=== PATIENT | male | born 1980 | race Caucasian/White ===

== ENCOUNTER 2019-10-04 16:05 | Emergency (ER) | payer OTHER ==
[2019-10-04] MEDS ORDERED: MORPHINE 4 MG/ML SYR ONE (17:20)
--- NOTE | 2019-10-04 18:21 | RAD REPORT ---
EXAM DESCRIPTION: Ribs Right - 10/04/2019 5:41 pm CLINICAL HISTORY: Right rib pain FINDINGS: No fracture is seen
--- NOTE | 2019-10-04 18:24 | RAD REPORT ---
EXAM DESCRIPTION: Jane Dunaway (2 Views)10/04/2019 5:39 pm CLINICAL HISTORY: Chest pain COMPARISON: None FINDINGS: The lungs appear clear of acute infiltrate. The heart is normal size IMPRESSION: No acute abnormalities displayed
--- NOTE | 2019-10-04 19:12 | EDPHYS ---
Physician Documentation [facility] Name: Katlyn Chisholm Age: 39 yrs Sex: Male : 1980 Arrival Date: 10/04/2019 Time: 16:08 Bed 26 Private MD: ED Physician Maicol Ballard HPI: 10/03 17:02 This 39 yrs old Male presents to ER via Ambulatory with complaints of Rib mh7 Injury. 17:04 The patient or guardian reports chest pain that is located primarily in the right mh7 lateral anterior chest and right lateral posterior chest. Onset: The symptoms/episode began/occurred 3 day(s) ago. The pain does not radiate. Associated signs and symptoms: Pertinent negatives: abdominal pain, cough, diaphoresis, dizziness, headache, lower extremity pain, lower extremity swelling, lightheadedness, nausea, near syncope, palpitations, recent travel, shortness of breath, syncope, vomiting. The chest pain is described as sharp. Duration: The patient or guardian reports a single episode, that is still ongoing, and unchanged. Modifying factors: The symptoms are alleviated by remaining still, the symptoms are aggravated by movement. Severity of pain: At its worst the pain was moderate last night, in the emergency department the pain is unchanged. Patient states that that he tripped and fell 3 days ago but caught himself by putting both hands onto the ground but felt immediate pain to right chest and rib area. Denies any other injuries, fever, nausea, vomiting.. Historical: - Allergies: 16:15 Nortriptyline; ph - Immunization history:: Adult Immunizations unknown. - Social history:: Smoking status: Patient reports the use of cigarette tobacco products, smokes one pack cigarettes per day. ROS: 17:04 Constitutional: Negative for fever, chills, and weight loss, Eyes: Negative for injury, mh7 pain, redness, and discharge, ENT: Negative for injury, pain, and discharge, Neck: Negative for injury, pain, and swelling, Abdomen/GI: Negative for abdominal pain, nausea, vomiting, diarrhea, and constipation, Back: Negative for injury and pain, : Negative for injury, bleeding, discharge, and swelling, Skin: Negative for injury, rash, and discoloration, Neuro: Negative for headache, weakness, numbness, tingling, and seizure, Psych: Negative for depression, anxiety, suicide ideation, homicidal ideation, and hallucinations, Allergy/Immunology: Negative for hives, rash, and allergies, Endocrine: Negative for neck swelling, polydipsia, polyuria, polyphagia, and marked weight changes, Hematologic/Lymphatic: Negative for swollen nodes, abnormal bleeding, and unusual bruising. Exam: 17:04 Constitutional: This is a well developed, well nourished patient who is awake, alert, mh7 and in no acute distress. Head/Face: Normocephalic, atraumatic. Eyes: Pupils equal round and reactive to light, extra-ocular motions intact. Lids and lashes normal. Conjunctiva and sclera are non-icteric and not injected. Cornea within normal limits. Periorbital areas with no swelling, redness, or edema. Neck: Trachea midline, no thyromegaly or masses palpated, and no cervical lymphadenopathy. Supple, full range of motion without nuchal rigidity, or vertebral point tenderness. No Meningismus. 17:04 Cardiovascular: Regular rate and rhythm with a normal S1 and S2. No gallops, murmurs, or rubs. Normal PMI, no JVD. No pulse deficits. Respiratory: Lungs have equal breath sounds bilaterally, clear to auscultation and percussion. No rales, rhonchi or wheezes noted. No increased work of breathing, no retractions or nasal flaring. Abdomen/GI: Soft, non-tender, with normal bowel sounds. No distension or tympany. No guarding or rebound. No evidence of tenderness throughout. Back: No spinal tenderness. No costovertebral tenderness. Full range of motion. Skin: Warm, dry with normal turgor. Normal color with no rashes, no lesions, and no evidence of cellulitis. MS/ Extremity: Pulses equal, no cyanosis. Neurovascular intact. Full, normal range of motion. Neuro: Awake and alert, GCS 15, oriented to person, place, time, and situation. Cranial nerves II-XII grossly intact. Motor strength 5/5 in all extremities. Sensory grossly intact. Cerebellar exam normal. Normal gait. Psych: Awake, alert, with orientation to person, place and time. Behavior, mood, and affect are within normal limits. 17:04 Chest/axilla: Inspection: normal, Palpation: tenderness, that is moderate, of the right lateral posterior chest and right lateral anterior chest, that totally reproduces the patient's complaints, Axilla: are normal, Lymph nodes: lymphadenopathy is not appreciated. Vital Signs: 16:18 BP 132 / 98; Pulse 98; Resp 20; Temp 98.1; Pulse Ox 98% on R/A; Weight 106.59 kg; ph Height 6 ft. 5 in. (195.58 cm); Pain 8/10; 19:08 BP 124 / 86; Pulse 77; Resp 18; Pulse Ox 98% ; ll1 16:18 Body Mass Index 27.87 (106.59 kg, 195.58 cm) ph MDM: 17:01 Patient medically screened. mh7 19:06 Differential diagnosis: Chest Wall Contusion Chest Wall Injury Pneumothorax Rib mh7 Fracture. Data reviewed: vital signs, nurses notes, radiologic studies, plain films. Data interpreted: Pulse oximetry: on room air is 98 %. Interpretation: normal. Counseling: I had a detailed discussion with the patient and/or guardian regarding: the historical points, exam findings, and any diagnostic results supporting the discharge/admit diagnosis, the presence of at least one elevated blood pressure reading (>120/80) during this emergency department visit, lab results, radiology results, the need for outpatient follow up, to return to the emergency department if symptoms worsen or persist or if there are any questions or concerns that arise at home. Response to treatment: the patient's symptoms have resolved after treatment, the patient's blood pressure is in an acceptable range, mental status has returned to baseline, the patient no longer shows bradycardia, the patient is not short of breath, the patient is not tachycardic, the patient's pain is gone, the patient's temperature has normalized. 10/03 17:02 Order name: Chest Pa And Lat (2 Views) XRAY; Complete Time: 18:54 mh7 10/03 17:02 Order name: Ribs Right XRAY; Complete Time: 18:54 mh7 Administered Medications: 17:16 Drug: morphine 4 mg {Note: RASS 0.} Route: IM; Site: left gluteus; ll1 17:58 Follow up: Response: No adverse reaction; Pain is decreased; RASS: Alert and Calm (0) ll1 19:17 Follow up: Response: No adverse reaction; Pain is decreased; RASS: Alert and Calm (0) ll1 Disposition: 10/04/19 19:12 Discharged to Home. Impression: Chest Wall Pain. - Condition is Stable. - Discharge Instructions: Chest Wall Pain, [id number]. - Prescriptions for Ibuprofen 800 mg Oral Tablet - take 1 tablet by ORAL route every 8 hours As needed take with food; 15 tablet. Robaxin 500 mg Oral Tablet - take 2 tablet by ORAL route every 6 hours As needed; 40 tablet. Tramadol 50 mg Oral Tablet - take 1 tablet by ORAL route every 8 hours as needed; 12 tablet. - Medication Reconciliation Form, Thank You Letter, Antibiotic Education, Prescription Opioid Use form. - Follow up: Private Physician; When: 1 - 2 days; Reason: Worsening of condition, Recheck today's complaints, Re-evaluation by your physician. - Problem is new. - Symptoms have improved. Signatures: Dispatcher [employer] EDAnabela Rodriguez RN RN Agata Turk RN RN ll1 Maicol Ballard MD MD mh7 Corrections: (The following items were deleted from the chart) 19:18 19:12 10/04/2019 19:12 Discharged to Home. Impression: Chest Wall Pain. Condition is ll1 Stable. Forms are Medication Reconciliation Form, Thank You Letter, Antibiotic Education, Prescription Opioid Use. Follow up: Private Physician; When: 1 - 2 days; Reason: Worsening of condition, Recheck today's complaints, Re-evaluation by your physician. Problem is new. Symptoms have improved. mh7
--- NOTE | 2019-10-04 19:12 | ER ---
Nurse's Notes [facility] Name: Katlyn Chisholm Age: 39 yrs Sex: Male : 1980 Arrival Date: 10/04/2019 Time: 16:08 Bed 26 Private MD: Diagnosis: Chest Wall Pain Presentation: 10/03 16:18 Chief complaint: Patient states: Fell 2 days ago c/o pain to R shoulder and R ribs, ph also c/o SOB and pain w/ movement and breathing, denies LOC, Spo2 98% in triage. Coronavirus screen: Patient denies a cough. Patient denies shortness of breath or difficulty breathing. Patient denies measured and/or subjective temperature greater than 100.4F prior to today's visit. Patient denies travel on a cruise ship or to a country the [facility] currently lists as an affected area. Patient denies contact with known and/or suspected case of COVID-19. Ebola Screen: No symptoms or risks identified at this time. Initial Sepsis Screen: Does the patient meet any 2 criteria? No. Patient's initial sepsis screen is negative. Does the patient have a suspected source of infection? No. Patient's initial sepsis screen is negative. Risk Assessment: Do you want to hurt yourself or someone else? Patient reports no desire to harm self or others. Onset of symptoms was October 04, 2019. 16:18 Method Of Arrival: Ambulatory ph 16:18 Acuity: ELISE 4 ph Triage Assessment: 19:17 General: Appears in no apparent distress. Respiratory: the patient has mild shortness ll1 of breath. Respiratory: Airway is patent Trachea midline Respiratory effort is even, unlabored, Respiratory pattern is regular, symmetrical. Historical: - Allergies: 16:15 Nortriptyline; ph - Immunization history:: Adult Immunizations unknown. - Social history:: Smoking status: Patient reports the use of cigarette tobacco products, smokes one pack cigarettes per day. Screenin:23 Abuse screen: Denies threats or abuse. Nutritional screening: No deficits noted. ll1 Tuberculosis screening: No symptoms or risk factors identified. Fall Risk None identified. Fall in past 12 months (25 points). Total Bermudez Fall Scale indicates No Risk (0-24 pts). Assessment: 16:21 General: Appears in no apparent distress. Behavior is calm, cooperative, appropriate ll1 for age. Pain: Complains of pain in right shoulder right rib cage area Quality of pain is described as aching, Pain began 2-3 days ago. Is episodic. Neuro: No deficits noted. Cardiovascular: No deficits noted. Cardiovascular: Rhythm is regular. Respiratory: Reports shortness of breath since fall yesterday Airway is patent Trachea midline Respiratory effort is even, unlabored, Respiratory pattern is regular, symmetrical, Breath sounds are clear bilaterally. Onset: The symptoms/episode began/occurred yesterday. Musculoskeletal: Circulation, motion, and sensation intact. Capillary refill < 3 seconds, Reports pain in right shoulder right trunk. 17:21 Reassessment: Patient appears in no apparent distress at this time. No changes from ll1 previously documented assessment. Patient and/or family updated on plan of care and expected duration. Pain level reassessed. Patient is alert, oriented x 3, equal unlabored respirations, skin warm/dry/pink. 18:20 Reassessment: Patient appears in no apparent distress at this time. No changes from ll1 previously documented assessment. Patient and/or family updated on plan of care and expected duration. Pain level reassessed. Patient is alert, oriented x 3, equal unlabored respirations, skin warm/dry/pink. Vital Signs: 16:18 BP 132 / 98; Pulse 98; Resp 20; Temp 98.1; Pulse Ox 98% on R/A; Weight 106.59 kg; ph Height 6 ft. 5 in. (195.58 cm); Pain 8/10; 19:08 BP 124 / 86; Pulse 77; Resp 18; Pulse Ox 98% ; ll1 16:18 Body Mass Index 27.87 (106.59 kg, 195.58 cm) ph ED Course: 16:08 Patient arrived in ED. ag5 16:17 Agata Rizo, RN is Primary Nurse. ll1 16:20 Triage completed. ph 16:20 Arm band placed on Patient placed in an exam room. ph 16:23 Patient has correct armband on for positive identification. Bed in low position. Call ll1 light in reach. Side rails up X 1. 16:44 Maicol Ballard MD is Attending Physician. mh7 17:39 Chest Pa And Lat (2 Views) XRAY In Process Unspecified. EDMS 17:39 Ribs Right XRAY In Process Unspecified. EDMS 19:17 No provider procedures requiring assistance completed. Patient did not have IV access ll1 during this emergency room visit. Administered Medications: 17:16 Drug: morphine 4 mg {Note: RASS 0.} Route: IM; Site: left gluteus; ll1 17:58 Follow up: Response: No adverse reaction; Pain is decreased; RASS: Alert and Calm (0) 1 19:17 Follow up: Response: No adverse reaction; Pain is decreased; RASS: Alert and Calm (0) 1 Outcome: 19:12 Discharge ordered by MD. hercules 19:17 Discharged to home ambulatory. 1 19:17 Condition: stable 19:17 Discharge instructions given to patient, Instructed on discharge instructions, follow up and referral plans. no drinking with medication, no driving heavy equipment, medication usage, Demonstrated understanding of instructions, follow-up care, medications, Prescriptions given X 3. 19:18 Patient left the ED. 1 Signatures: Dispatcher [employer] EDMS Anabela Grijalva RN RN ph Gaskin, Ajare 5 Agata Rizo RN RN 1 Maicol Ballard MD MD 7 Corrections: (The following items were deleted from the chart) 17:17 17:16 morphine 4 mg IM in left gluteus ll1 1
[2019-10-04 19:24] VITALS: TEMP 98.1; O2SAT 98
[2019-10-04 19:25] VITALS: BP 124/86
== END 2019-10-04 19:18 | disposition home or self-care (01) ==
LOC: ER 16:05
DX: R07.89 Other chest pain (principal); Z88.8 Allergy status to other drugs, medicaments and biological substances; F17.210 Nicotine dependence, cigarettes, uncomplicated
CPT/HCPCS: 71046; 96372; 99283

== ENCOUNTER 2019-10-15 14:17 | Emergency (ER) | payer OTHER ==
[2019-10-15 15:24] LABS: Absolute Lymphocytes (CBC) 2.5 K/uL (0.7-4.9); Basophils % 0.6 % (0-1.3); Hematocrit 47.8 % (39.6-49.0); Lymphocytes % 26.7 % (15.3-44.8); MPV 11.3 fL (7.6-11.3); RBC Red Blood Cell Count 5.34 M/uL (4.33-5.43)
[2019-10-15] MEDS ORDERED: ONDANSETRON 4 MG/2 ML VIAL ONE (15:28)
[2019-10-15] MEDS ORDERED: NA CHLORIDE 0.9% 1,000 ML ONE (15:28)
[2019-10-15] MEDS ORDERED: MORPHINE 4 MG/ML SYR ONE (15:28)
[2019-10-15 15:34] LABS: Albumin 4.3 g/dL (3.4-5.0); Bilirubin Direct 0.1 mg/dL (0-0.2); Bilirubin Total 0.7 mg/dL (0.2-1.0); Potassium 3.5 mmol/L (3.5-5.1); Protein, Total 8.6 g/dL (6.4-8.2)
--- NOTE | 2019-10-15 16:13 | RAD REPORT ---
EXAM DESCRIPTION: CT - Abdomen Pelvis W Contrast - 10/15/2019 4:02 pm CLINICAL HISTORY: Abdominal pain COMPARISON: none. TECHNIQUE: Computed axial tomography of the abdomen pelvis was obtained. 100 cc Isovue-300 was admin istered intravenously. Oral contrast was not requested which limits evaluation of bowel. All CT scans are performed using dose optimization technique as appropriate and may include automated exposure control or mA/KV adjustment according to patient size. FINDINGS: The liver, spleen, pancreas, adrenal and left kidney appear unremarkable. 24 millimeter ri ght renal cyst There is no evidence of diverticulitis. Normal appendix Fluid within nondilated small bowel IMPRESSION: Fluid within nondilated small bowel may indicate an enteritis
--- NOTE | 2019-10-15 16:13 | RAD REPORT ---
EXAM DESCRIPTION: Jane Single View10/15/2019 3:30 pm CLINICAL HISTORY: cough COMPARISON: October 04, 2019 FINDINGS: The lungs appear clear of acute infiltrate. The heart is normal size IMPRESSION: No acute abnormalities displayed
--- NOTE | 2019-10-15 16:39 | ER ---
Nurse's Notes [facility] Name: Katlyn Chisholm Age: 39 yrs Sex: Male : 1980 Arrival Date: 10/15/2019 Time: 14:20 Bed 18 Private MD: Diagnosis: Abdominal tenderness-enteritis Presentation: 10/14 14:32 Chief complaint: Patient states: Beginning this month, I fell and caught my self with ca1 my R hand. I hurt my R shoulder, R side of my chest, R side of my ribcage and upper R of my abdomen. This time, all the other pain is gone, except for on R upper par of my abdomen right down to my belly button. I also feel some N/V. I have alternate bouts of diarrhea and constipation. Denies fever. Coronavirus screen: Proceed with normal triage. Patient denies a cough. Patient denies shortness of breath or difficulty breathing. Patient denies measured and/or subjective temperature greater than 100.4F prior to today's visit. Patient denies travel on a cruise ship or to a country the [facility] currently lists as an affected area. Patient denies contact with known and/or suspected case of COVID-19. Ebola Screen: Patient negative for fever greater than or equal to 101.5 degrees Fahrenheit, and additional compatible Ebola Virus Disease symptoms Patient denies exposure to infectious person. Patient denies travel to an Ebola-affected area in the 21 days before illness onset. No symptoms or risks identified at this time. Initial Sepsis Screen: Does the patient meet any 2 criteria? No. Patient's initial sepsis screen is negative. Does the patient have a suspected source of infection? No. Patient's initial sepsis screen is negative. Risk Assessment: Do you want to hurt yourself or someone else? Patient reports no desire to harm self or others. Onset of symptoms was October 15, 2019. 14:32 Method Of Arrival: Ambulatory ca1 14:32 Acuity: ELISE 3 ca1 Triage Assessment: 14:36 General: Appears in no apparent distress. comfortable, Behavior is calm, cooperative, ca1 appropriate for age. Pain: Complains of pain in right upper quadrant Pain does not radiate. Pain currently is 8 out of 10 on a pain scale. Quality of pain is described as dull, sharp, Pain began 2 weeks ago. EENT: No signs and/or symptoms were reported regarding the EENT system. Neuro: Level of Consciousness is awake, alert, obeys commands, Oriented to person, place, time, situation, Appropriate for age. Cardiovascular: Heart tones S1 S2 present Capillary refill < 3 seconds Patient's skin is warm and dry. Respiratory: Airway is patent Respiratory effort is even, unlabored, Respiratory pattern is regular, symmetrical, Breath sounds are clear bilaterally. GI: Abdomen is flat, non-distended, Bowel sounds present X 4 quads. Abd is soft X 4 quads Abdomen is tender to palpation in right upper quadrant Reports constipation, diarrhea, nausea, vomiting. : No signs and/or symptoms were reported regarding the genitourinary system. Derm: Skin is intact, is healthy with good turgor, Skin is pink, warm \T\ dry. Musculoskeletal: Circulation, motion, and sensation intact. Capillary refill < 3 seconds. Historical: - Allergies: 14:36 Nortriptyline; ca1 - Home Meds: 14:36 None [Active]; ca1 - PMHx: 14:36 None; ca1 - PSHx: 14:36 Shoulder R; ca1 - Immunization history:: Adult Immunizations up to date. - Social history:: Smoking status: Patient reports the use of cigarette tobacco products, smokes two packs cigarettes per day. - Family history:: not pertinent. Screenin:39 Abuse screen: Denies threats or abuse. Denies injuries from another. Nutritional ca1 screening: No deficits noted. Tuberculosis screening: No symptoms or risk factors identified. Fall Risk IV access (20 points). Assessment: 14:39 Reassessment: see triage notes. ca1 15:30 Reassessment: Patient appears in no apparent distress at this time. Patient and/or ca1 family updated on plan of care and expected duration. Pain level reassessed. Patient is alert, oriented x 3, equal unlabored respirations, skin warm/dry/pink. 16:35 Reassessment: Patient appears in no apparent distress at this time. Patient and/or ca1 family updated on plan of care and expected duration. Pain level reassessed. Patient is alert, oriented x 3, equal unlabored respirations, skin warm/dry/pink. Vital Signs: 14:32 BP 143 / 95; Pulse 75; Resp 15 S; Temp 98.2(O); Pulse Ox 98% on R/A; Weight 113.4 kg ca1 (R); Height 6 ft. 5 in. (195.58 cm) (R); Pain 8/10; 15:30 BP 148 / 99; Pulse 75; Resp 15 S; Pulse Ox 99% on R/A; ca1 16:30 BP 133 / 73; Pulse 66; Resp 15 S; Pulse Ox 96% on R/A; ca1 14:32 Body Mass Index 29.65 (113.40 kg, 195.58 cm) ca1 ED Course: 14:20 Patient arrived in ED. ag5 14:25 Britt Barker, RN is Primary Nurse. ca1 14:35 Juan Antonio Hartley MD is Attending Physician. migdalia 14:35 Triage completed. ca1 14:36 Arm band placed on right wrist. ca1 14:39 Patient has correct armband on for positive identification. Bed in low position. Call ca1 light in reach. Side rails up X 1. Pulse ox on. NIBP on. Warm blanket given. 14:40 No provider procedures requiring assistance completed. ca1 14:40 Inserted saline lock: 20 gauge in right forearm, using aseptic technique. dh4 15:31 Chest Single View XRAY In Process Unspecified. EDMS 16:00 CT completed. Patient tolerated procedure well. Patient moved back from CT. bq 16:02 CT Abd/Pelvis - IV Contrast Only In Process Unspecified. EDMS 16:37 Danae Funes MD is Referral Physician. migdalia 16:55 IV discontinued, intact, bleeding controlled, No redness/swelling at site. Pressure ca1 dressing applied. Administered Medications: 15:20 Drug: NS 0.9% 1000 ml Route: IV; Rate: 1 bolus; Site: right forearm; ca1 16:45 Follow up: Response: No adverse reaction; IV Status: Completed infusion ca1 15:21 Drug: Zofran (Ondansetron) 4 mg Route: IVP; Site: right forearm; ca1 16:45 Follow up: Response: No adverse reaction; Pain is decreased; RASS: Alert and Calm (0) ca1 15:24 Drug: morphine 4 mg {Note: rass - 0.} Route: IVP; Site: right forearm; ca1 16:45 Follow up: Response: No adverse reaction; Nausea is decreased ca1 16:50 Drug: Cipro 500 mg Route: PO; ca1 16:54 Follow up: Response: Medication administered at discharge. ca1 16:50 Drug: Flagyl 500 mg Route: PO; ca1 16:55 Follow up: Response: Medication administered at discharge. ca1 Outcome: 16:38 Discharge ordered by . migdalia 16:55 Discharged to home ambulatory. ca1 16:55 Condition: stable 16:55 Discharge instructions given to patient, Instructed on discharge instructions, follow up and referral plans. medication usage, Demonstrated understanding of instructions, follow-up care, medications, Prescriptions given X 4. 16:56 Patient left the ED. ca1 Signatures: Dispatcher [employer] EDMS Juan Antonio Hartley MD MD cha Quilty, Betty bq Acob, Cheryl, RN RN ca1 Chelsea Singh [facility] Miguel Encinas [facility], [facility]
--- NOTE | 2019-10-15 16:39 | EDPHYS ---
Physician Documentation [facility] Name: Katlyn Chisholm Age: 39 yrs Sex: Male : 1980 Arrival Date: 10/15/2019 Time: 14:20 Bed 18 Private MD: STEFANIE Physician Juan Antonio Hartley HPI: 10/14 15:13 This 39 yrs old Male presents to ER via Ambulatory [facility] of [facility] Abdominal Pain, Nausea, Diarrhea, Constipation. 15:13 The patient presents to the emergency department with nausea, abdominal pain, of the migdalai right upper quadrant and right lower quadrant. Onset: The symptoms/episode began/occurred 5 day(s) ago. Possible causes: unknown. The symptoms are aggravated by nothing. The symptoms are alleviated by nothing. remaining still. Associated signs and symptoms: Pertinent positives: abdominal pain, diarrhea, nausea. Severity of symptoms: At their worst the symptoms were moderate in the emergency department the symptoms are unchanged. The patient has not experienced similar symptoms in the past. Historical: - Allergies: 14:36 Nortriptyline; ca1 - Home Meds: 14:36 None [Active]; ca1 - PMHx: 14:36 None; ca1 - PSHx: 14:36 Shoulder R; ca1 - Immunization history:: Adult Immunizations up to date. - Social history:: Smoking status: Patient reports the use of cigarette tobacco products, smokes two packs cigarettes per day. - Family history:: not pertinent. ROS: 15:13 Constitutional: Negative for fever, chills, and weight loss, Eyes: Negative for injury, migdalia pain, redness, and discharge, ENT: Negative for injury, pain, and discharge, Neck: Negative for injury, pain, and swelling, Cardiovascular: Negative for chest pain, palpitations, and edema, Respiratory: Negative for shortness of breath, cough, wheezing, and pleuritic chest pain, Back: Negative for injury and pain, : Negative for injury, bleeding, discharge, and swelling, MS/Extremity: Negative for injury and deformity, Skin: Negative for injury, rash, and discoloration, Neuro: Negative for headache, weakness, numbness, tingling, and seizure, Psych: Negative for depression, anxiety, suicide ideation, homicidal ideation, and hallucinations, Allergy/Immunology: Negative for hives, rash, and allergies, Endocrine: Negative for neck swelling, polydipsia, polyuria, polyphagia, and marked weight changes, Hematologic/Lymphatic: Negative for swollen nodes, abnormal bleeding, and unusual bruising. 15:13 Abdomen/GI: Positive for abdominal pain, nausea, diarrhea, of the anterior aspect of right lateral abdomen, right upper quadrant and right lower quadrant. Exam: 15:13 Constitutional: This is a well developed, well nourished patient who is awake, alert, migdalia and in no acute distress. Head/Face: Normocephalic, atraumatic. Eyes: Pupils equal round and reactive to light, extra-ocular motions intact. Lids and lashes normal. Conjunctiva and sclera are non-icteric and not injected. Cornea within normal limits. Periorbital areas with no swelling, redness, or edema. ENT: Nares patent. No nasal discharge, no septal abnormalities noted. Tympanic membranes are normal and external auditory canals are clear. Oropharynx with no redness, swelling, or masses, exudates, or evidence of obstruction, uvula midline. Mucous membranes moist. Neck: Trachea midline, no thyromegaly or masses palpated, and no cervical lymphadenopathy. Supple, full range of motion without nuchal rigidity, or vertebral point tenderness. No Meningismus. Chest/axilla: Normal chest wall appearance and motion. Nontender with no deformity. No lesions are appreciated. Cardiovascular: Regular rate and rhythm with a normal S1 and S2. No gallops, murmurs, or rubs. Normal PMI, no JVD. No pulse deficits. Respiratory: Lungs have equal breath sounds bilaterally, clear to auscultation and percussion. No rales, rhonchi or wheezes noted. No increased work of breathing, no retractions or nasal flaring. Back: No spinal tenderness. No costovertebral tenderness. Full range of motion. Male : Normal genitalia with no discharge or lesions. Skin: Warm, dry with normal turgor. Normal color with no rashes, no lesions, and no evidence of cellulitis. MS/ Extremity: Pulses equal, no cyanosis. Neurovascular intact. Full, normal range of motion. Neuro: Awake and alert, GCS 15, oriented to person, place, time, and situation. Cranial nerves II-XII grossly intact. Motor strength 5/5 in all extremities. Sensory grossly intact. Cerebellar exam normal. Normal gait. Psych: Awake, alert, with orientation to person, place and time. Behavior, mood, and affect are within normal limits. 15:13 Abdomen/GI: Inspection: abdomen appears normal, Bowel sounds: normal, Palpation: moderate abdominal tenderness, in the right upper quadrant and right lower quadrant. Vital Signs: 14:32 BP 143 / 95; Pulse 75; Resp 15 S; Temp 98.2(O); Pulse Ox 98% on R/A; Weight 113.4 kg ca1 (R); Height 6 ft. 5 in. (195.58 cm) (R); Pain 8/10; 15:30 BP 148 / 99; Pulse 75; Resp 15 S; Pulse Ox 99% on R/A; ca1 16:30 BP 133 / 73; Pulse 66; Resp 15 S; Pulse Ox 96% on R/A; ca1 14:32 Body Mass Index 29.65 (113.40 kg, 195.58 cm) ca1 MDM: 14:35 Patient medically screened. [facility] 15:17 Differential diagnosis: Nonspecific abd pain, cholecystitis, appendicitis, migdalia diverticulitis. Data reviewed: vital signs, nurses notes, lab test result(s), radiologic studies, CT scan, plain films. Data interpreted: stna: rate is 75 beats/min, Pulse oximetry: on room air is 98 %. Test interpretation: by ED physician or midlevel provider: plain radiologic studies. Counseling: I had a detailed discussion with the patient and/or guardian regarding: the historical points, exam findings, and any diagnostic results supporting the discharge/admit diagnosis, lab results, radiology results. Medication response: Zofran markedly relieved the patient's nausea. 16:39 Response to treatment: the patient's symptoms have markedly improved after treatment. [facility] ED course: pt non toxic, studies cw enteritis, will treat out pa on cipro , flagyl, bentyl and zofran. 10/14 14:48 Order name: Basic Metabolic Panel; Complete Time: 15:52 ca1 10/14 14:48 Order name: CBC with Diff; Complete Time: 15:52 ca1 10/14 14:48 Order name: Hepatic Function; Complete Time: 15:52 ca1 10/14 14:48 Order name: Lipase; Complete Time: 15:52 ca1 10/14 15:04 Order name: Urine Dipstick--Ancillary (enter results) eb 10/14 15:13 Order name: Chest Single View XRAY; Complete Time: 16:33 [facility] 10/14 14:48 Order name: IV Saline Lock; Complete Time: 14:50 [facility] 10/14 14:48 Order name: Labs collected and sent; Complete Time: 14:50 [facility] 10/14 15:13 Order name: CT Abd/Pelvis - IV Contrast Only; Complete Time: 16:33 [facility] 10/14 14:48 Order name: Urine Dipstick-Ancillary (obtain specimen); Complete Time: 14:55 ca1 Administered Medications: 15:20 Drug: NS 0.9% 1000 ml Route: IV; Rate: 1 bolus; Site: right forearm; ca1 16:45 Follow up: Response: No adverse reaction; IV Status: Completed infusion ca1 15:21 Drug: Zofran (Ondansetron) 4 mg Route: IVP; Site: right forearm; ca1 16:45 Follow up: Response: No adverse reaction; Pain is decreased; RASS: Alert and Calm (0) ca1 15:24 Drug: morphine 4 mg {Note: rass - 0.} Route: IVP; Site: right forearm; ca1 16:45 Follow up: Response: No adverse reaction; Nausea is decreased ca1 16:50 Drug: Cipro 500 mg Route: PO; ca1 16:54 Follow up: Response: Medication administered at discharge. ca1 16:50 Drug: Flagyl 500 mg Route: PO; ca1 16:55 Follow up: Response: Medication administered at discharge. ca1 Disposition: 10/15/19 16:38 Discharged to Home. Impression: Abdominal tenderness - enteritis. - Condition is Stable. - Discharge Instructions: Abdominal Pain, Adult, Nausea and Vomiting, Adult, Abdominal Pain, Adult, [id number]. - Prescriptions for Bentyl 20 mg Oral Tablet - take 1 tablet by ORAL route every 6 hours As needed; 20 tablet. Flagyl 500 mg Oral Tablet - take 1 tablet by ORAL route every 8 hours for 10 days; 21 tablet. Zofran 4 mg Oral Tablet - take 1 tablet by ORAL route every 12 hours As needed; 20 tablet. Cipro 500 mg Oral Tablet - take 1 tablet by ORAL route every 12 hours for 7 days; 14 tablet. - Medication Reconciliation Form, Thank You Letter, Antibiotic Education, Prescription Opioid Use form. - Follow up: Private Physician; When: 2 - 3 days; Reason: Recheck today's complaints, Continuance of care, Re-evaluation by your physician. Follow up: Danae Funes MD; When: 2 - 3 days; Reason: Recheck today's complaints, Re-evaluation by your physician. - Problem is new. - Symptoms have improved. Signatures: Dispatcher [employer] Juan Antonio Cortes MD MD cha Acob, Cheryl, RN RN ca1 Corrections: (The following items were deleted from the chart) 16:56 16:38 10/15/2019 16:38 Discharged to Home. Impression: Abdominal tenderness - ca1 enteritis. Condition is Stable. Forms are Medication Reconciliation Form, Thank You Letter, Antibiotic Education, Prescription Opioid Use. Follow up: Private Physician; When: 2 - 3 days; Reason: Recheck today's complaints, Continuance of care, Re-evaluation by your physician. Follow up: Danae Funes; When: 2 - 3 days; Reason: Recheck today's complaints, Re-evaluation by your physician. Problem is new. Symptoms have improved. migdalia
[2019-10-15] MEDS ORDERED: metroNIDAZOLE 500 MG TABLET ONE (16:55)
[2019-10-15] MEDS ORDERED: CIPROFLOXACIN HCL 500 MG TAB ONE (16:56)
[2019-10-15 17:03] VITALS: TEMP 98.2
[2019-10-15 17:06] VITALS: BP 133/73; O2SAT 96
[2019-10-15 21:03] LABS: Urine Blood NEGATIVE (NEG); Urine Glucose NEGATIVE (NEG); Urine Protein 1+ (NEG)
== END 2019-10-15 16:56 | disposition home or self-care (01) ==
LOC: ER 14:17
DX: K52.9 Noninfective gastroenteritis and colitis, unspecified (principal); F17.210 Nicotine dependence, cigarettes, uncomplicated; Z88.8 Allergy status to other drugs, medicaments and biological substances
CPT/HCPCS: 96361; 85025; 80048; 36415; 80076; 81003; 83690; 74177; 71045; 96375; 96374; 99284; Q9967; J7030; J2405